=== PATIENT | male | born 1975 | race Caucasian/White ===

== ENCOUNTER 2019-10-04 15:05 | Emergency (ER) | payer BC, OTHER ==
--- NOTE | 2019-10-04 15:07 | PDOC ---
History of Present Illness - General Chief Complaint: Injury Stated Complaint: RT 2ND FINGER CRUSH Time Seen by Provider: 10/04/19 15:07 History Source: Patient Exam Limitations: No Limitations - History of Present Illness Initial Comments: 44 year old male with no PMH presented to ED for evaluation of right second finger injury. Pt reported he was doing some handywork around the house, was using a hammer and accidentally struck his right second finger with the hammer at the tip of the finger. Pt denied numbness, tingling, discoloration. Pt denied other injuries or complaints. Pt denied open wound/laceration. ROS General: denied fever, chills, generalized weakness. HEENT: denied sore throat, rhinorrhea, ear pain. Cardiovascular: denied chest pain, palpitations, syncope, diaphoresis. Respiratory: denied shortness of breath, cough, sputum production, hemoptysis. Gastrointestinal: denied abdominal pain, nausea, vomiting, diarrhea, constipation, blood in stool. Genitourinary: denied dysuria, increased urinary frequency, hematuria, urinary incontinence, flank pain. Back: denied back pain. Musculoskeletal: admitted to right second finger pain. Neurological: denied headache, dizziness, numbness, tingling, weakness. Integumentary: denied rash, laceration, abrasion. Hematologic/Lymphatic: denied bruising or bleeding. PE Constitutional: Well-nourished, Well-developed, appearing stated age. HEENT: head is normocephalic, atraumatic. EOMI. PERRLA. no posterior pharyngeal erythema. no tonsillar swelling or exudates bilaterally. uvula midline. no peritonsillar swelling. no jaw tenderness or misalignment. Neck: supple. Full ROM. Cardiovascular: regular heart rhythm. Normal S1 and S2. no murmurs. no pericardial friction rub. Respiratory: clear to auscultation bilaterally. no crackles, rhonchi or wheezing. no stridor. Gastrointestinal: soft, flat, nontender. normal bowel sounds. no rebound, guarding, or masses. Extremities: peripheral pulses intact and equal. no lower extremity edema noted. Right hand: no scaphoid tenderness to palpation. 2+ radial pulse. capillary refill all fingers <2 seconds. swelling and tenderness to the DIP of the right second finger. full ROM right 2nd finger at MCP/PIP/DIP. no subungual hematoma to right second finger. Neurological: CN 2-12 grossly intact. moves all four extremities. Psych: awake, alert, oriented x3. follows commands. answers questions appropriately. Past History - Past Medical History Allergies/Adverse Reactions: Allergies Allergy/AdvReac Type Severity Reaction Status Date / Time No Known Allergies Allergy Verified 10/04/19 15:05 Home Medications: Ambulatory Orders NK [No Known Home Medication] 10/04/19 - Psycho Social/Smoking Cessation Hx Smoking History: Never smoked Number of Cigarettes Smoked Daily: 0 'Breaking Loose' booklet given: 07/19/14 Hx Alcohol Use: No Drug/Substance Use Hx: No Substance Use Type: None Medical Decision Making - Medical Decision Making 44 year old male with above PMH presented to ED for right second finger injury. Initial Vital Signs Temp Pulse Resp BP Pulse Ox 98.1 F 92 H 20 147/79 98 10/04/19 15:05 10/04/19 15:05 10/04/19 15:05 10/04/19 15:05 10/04/19 15:05 Afebrile. No tachycardia. No tachypnea. Hypertensive. No hypoxia on room air. Labs ordered: none Imaging ordered: right hand XR, right second finger XR Medications ordered: ibuprofen 600 mg PO once 10/04/19 15:44 Right hand XR report: Name: [facility]ACK[facility]MA DEPARTMENT OF RADIOLOGY Phys: Yary Reilly RESIDENT : 1975 Age: 44 Sex: M [facility] Acct: [id number] Loc: [facility] [address] [facility]. Exam Date: 10/04/19 Status: [place] [address] Unit Number: [id number] EXAM #: TYPE/EXAM: RESULT: [id number] RAD/HAND- RIGHT Right hand: Hit second digit with hammer. Pain. 3 views of the right hand have been submitted. There is no sign of fracture or subluxation and no sign of blastic or lytic changes. A foreign body or soft tissue air is not seen. There is a sclerotic density seen in the distal phalanx of the thumb. This most likely represents a bone island. There is no change since 04/11/2015. Correlation recommended. If symptoms persist , further imaging may be of help. Reported By: Mehrdad Young MD 10/04/19 1539 Right 2nd finger XR report: Name: ZACK[facility] VERMA DEPARTMENT OF RADIOLOGY Phys: Yary Reilly RESIDENT : 1975 Age: 44 Sex: M [facility] Acct: [id number] Loc: [facility] [address] Hernandez. Exam Date: 10/04/19 Status : [facility] [place] [address] Unit Number: [id number] EXAM#: TYPE/EXAM: RESULT: [id number] RAD/FINGER(S) RIGHT Right second digit with hammer. Pain. 3 views of the right second digit reveal minimal swelling but no sign of fracture or subluxation and no sign of blastic or lytic changes. A foreign body or soft tissue is not seen. If symptoms persist , further imaging may be of help. Reported By: Mehrdad Young MD 10/04/19 1537 Pt discharged. Advised to take ibuprofen OTC for pain. Advised to F/U with PCP. Advsied to F/U with ortho if symptoms do not improve in 5-7 days. Pt agreed with plan for care. Discharge - Discharge Information Problems reviewed: Yes Clinical Impression/Diagnosis: Finger injury Condition: Stable Disposition: HOME - Admission No - Follow up/Referral Referrals: Ronald Calderón MD [Staff Physician] - Flo Monroy MD [Staff Physician] - - Patient Discharge Instructions Additional Instructions: Follow up with your primary care doctor within 3 days regarding your Emergency Room visit. Your care is not complete until you follow up. Take ibuprofen over the counter for your pain. Take as advised on label. You can add Tylenol over the counter if needed. Take as advised on label. Tylenol and Ibuprofen are not the same medication and can be safely used together. Return to the Emergency Department for increasing pain, blueness of the finger, numbness, tingling, fever, vomiting or any other new, worsening or concerning symptoms. I have provided you with a referral for an orthopedic doctor. If your symptoms do not improve within 7 days, please follow up with an orthopedic doctor. - Post Discharge Activity
[2019-10-04 15:24] VITALS: BP 147/79; PULSE 92; TEMP 98.1; BMI 30.7
--- NOTE | 2019-10-04 15:35 | PDOC ---
Attending Attestation - Resident Resident Name: Yary Reilly - ED Attending Attestation I have performed the following: I have examined & evaluated the patient, The case was reviewed & discussed with the resident, I agree w/resident's findings & plan, Exceptions are as noted - HPI HPI: 44 yo M presents with R index finger pain after he accidentally hit it with a hammer he was using at home. He states he had immediate pain, has developed swelling since that time. No other injuries. - Physicial Exam PE: GENERAL: Awake, alert, and fully oriented, in no acute distress HEAD: No signs of trauma EXTREMITIES: R index finger with tenderness over the distal phalanx. Cap refill <2s. Sensation intact, tendon function intact. No open lesions. Remainder of extremities with normal range of motion, no edema. No clubbing or cyanosis. No cords, erythema, or tenderness NEUROLOGICAL: Cranial nerves II through XII grossly intact. Normal speech, normal gait. Motor and sensation intact SKIN: Warm, dry, normal turgor, no rashes or lesions noted. - Medical Decision Making R index finger pain after it was hit with a hammer. Suspect poss distal phalanx/ tuft fracture. XR, +/- splint, DC home.
[2019-10-04] MEDS ORDERED: IBUPROFEN 600 MG TABLET (FP) PO ONE ×2 (15:45→15:59)
== END 2019-10-04 16:12 | disposition home or self-care (01) ==
LOC: FER 15:05
DX: S69.81XA Other specified injuries of right wrist, hand and finger(s), initial encounter (principal); W22.8XXA Striking against or struck by other objects, initial encounter; Y93.9 Activity, unspecified; Y92.9 Unspecified place or not applicable
CPT/HCPCS: 73130-TC-RT-FY; 73140-TC-RT-FY; 99283-25

== ENCOUNTER 2020-11-30 16:30 | Emergency (ER) | payer OTHER ==
[2020-11-30 17:03] VITALS: BP 114/70; PULSE 86; TEMP 98; BMI 30.7
== END 2020-11-30 16:50 | disposition home or self-care (01) ==
LOC: FER 16:30
DX: T25.312A Burn of third degree of left ankle, initial encounter (principal)
CPT/HCPCS: 99283-25; 99285-25